=== PATIENT | male | born 1970 | race Caucasian/White ===

== ENCOUNTER → 2018-07-05 | Day surgery (SDC) | payer MEDICARE, BC, OTHER ==
[~2018-07-05] MED LIST: ATOR20TA58 PO; DILT180C29 PO; HYDR12.58 PO; INSU100I30 SQ; IV RINGERS,LACTATED 1000ML 1,000 ML IV SCH; LIDOCAINE 1% PF 2 ML VIAL. ONE; LIRA0.6P2 SQ; LOSA50TA7 PO; NITR50CA PO; OXYB5TAB7 PO; PROPOFOL 20 ML IV ONE; SAXA1TBM3 PO
[2018-07-05 08:07] VITALS: BP 117/65
--- NOTE | 2018-07-08 14:08 | PATHOLOGY ---
[facility] Accession Number: [id number] . 01 Material submitted: . DISTALL ESOPHAGUS . 01 Clinical history: . Pre-OP DX: Dysphagia Post-OP DX: Reflux, rule out Reyes's . 02 Diagnosis: Squamous and glandular mucosa, "distal esophageal biopsy": - Reflux esophagitis with reactive squamous and glandular mucosa. - There is no evidence of goblet cell metaplasia, dysplasia or malignancy. . (SHA:jose maria; 07/08/2018) MBR/07/08/2018 . 02 Electronically signed: . Aureliano Herman MD, Pathologist NPI- [id number] . 01 Gross description: . Received in formalin labeled "Matthew Rebolledo, distal esophagus," are 4 segments of adams soft tissue measuring 1.8 x 0.5 x 0.2 cm in aggregate dimensions and ranging from 0.3 to 0.6 cm in maximum dimension. The specimen is submitted entirely in cassette A1. (TSD; 07/05/2018) TOB/TOB . 02 Pathologist provided ICD-10: K21.0 . 02 CPT . 957667 Specimen Comment: A courtesy copy of this report has been sent to Specimen Comment: [phone], . Specimen Comment: Report sent to / DR HDEZ Specimen Comment: A duplicate report has been generated due to demographic updates. Performed at: [facility] [address] [facility] [address], [place] [id number] MD Edgardo Lux MD Phone: [phone] Performed at: 02 [facility] [address] [place], [place] [id number] MD David Marie MD Phone: [phone]
== END | disposition home or self-care (01) ==
LOC: SURG 06:59
PROVIDERS: ATTEND Internal Medicine Gastroenterology
DX: K21.0 Gastro-esophageal reflux disease with esophagitis (principal); K22.2 Esophageal obstruction; I10 Essential (primary) hypertension; E11.9 Type 2 diabetes mellitus without complications; E78.00 Pure hypercholesterolemia, unspecified; G47.30 Sleep apnea, unspecified; D64.9 Anemia, unspecified; Z83.3 Family history of diabetes mellitus; Z82.49 Family history of ischemic heart disease and other diseases of the circulatory system; Z83.71 Family history of colonic polyps; Z79.899 Other long term (current) drug therapy; Z98.890 Other specified postprocedural states; Z79.84 Long term (current) use of oral hypoglycemic drugs
CPT/HCPCS: 43239; 43450; 88305; J2704

== ENCOUNTER → 2019-01-13 | Outpatient (CLI) | payer MEDICARE, BC, OTHER ==
[2018-07-05 08:07] VITALS: BP 117/65
[~2019-01-13] MED LIST changes: -IV RINGERS,LACTATED 1000ML 1,000 ML IV SCH; -LIDOCAINE 1% PF 2 ML VIAL. ONE; +LOSA-73 PO; -LOSA50TA7 PO; -PROPOFOL 20 ML IV ONE
--- NOTE | 2019-01-14 09:47 | KCIC ---
Examination: 3 views of the right knee HISTORY: History of right knee pain for one month COMPARISON: None available FINDINGS: The alignment of the knee joint grossly appears unremarkable. Mild joint space loss identified in medial, lateral, patellofemoral compartments likely degeneration. There is no acute fracture or dislocation identified. Small knee joint effusion IMPRESSION: 1. Mild tricompartmental degenerative changes Electronically signed by: Frank Jara MD (01/13/2019 2:29 PM) [facility]
== END | disposition home or self-care (01) ==
LOC: KCIC 13:14
PROVIDERS: ATTEND Family Medicine
DX: M17.11 Unilateral primary osteoarthritis, right knee (principal); M25.461 Effusion, right knee
CPT/HCPCS: 73562

== ENCOUNTER → 2019-04-29 | Outpatient (CLI) | payer MEDICARE, BC ==
[2018-07-05 08:07] VITALS: BP 117/65
--- NOTE | 2019-04-29 16:13 | KCIC ---
SHOULDER 2+V RIGHT 04/29/2019 12:00 AM INDICATION: Right shoulder pain. COMPARISON: None available. TECHNIQUE: 3 views the right shoulder are provided. FINDINGS: There is no acute fracture or dislocation. Bone mineralization is within normal limits. Joint spaces are maintained. Regional soft tissues are within normal limits. There is no soft tissue gas or osseous erosion. IMPRESSION: No acute fracture or dislocation. Electronically signed by: Rachel Gill MD (04/29/2019 4:10 PM) [facility]
== END | disposition home or self-care (01) ==
LOC: KCIC 13:51
PROVIDERS: ATTEND Nurse Practitioner Family
DX: M25.511 Pain in right shoulder (principal)
CPT/HCPCS: 73030

== ENCOUNTER 2020-01-09 21:45 | Emergency (ER) | payer MEDICAID, BC, MEDICARE ==
[~2020-01-09] VITALS: Ht 170.2 cm; Wt 98.6 kg
[~2020-01-09 21:45] MED LIST changes: +OXYB5TAB10 PO; -OXYB5TAB7 PO
--- NOTE | 2020-01-09 22:12 | PHYS DOC ---
General Adult EDM: Chief Complaint: URINE CATHETER PROBLEM HPI: HPI: Patient is a 49 year old male who presents with report of urinary retention. Patient has Fgaan catheter in place and patient had last emptied his bag at about 5 PM. indicates that she has tried to flush the catheter on 3 occasions without success. Patient reports pain in the suprapubic region that is moderate. He denies any vomiting or diarrhea. [] Review of Systems: Review of Systems: Constitutional: Denies fever or chills. [] Respiratory: Denies cough or shortness of breath. [] Cardiovascular: Denies chest pain or edema. [] GI: Complains of suprapubic pain. [] : Complains of urinary retention. [] Musculoskeletal: Denies back pain or joint pain. [] Integument: Denies rash. [] Heart Score: Risk Factors: Risk Factors: DM, Current or recent (<one month) smoker, HTN, HLP, family history of CAD, obesity. Risk Scores: Score 0 - 3: 2.5% MACE over next 6 weeks - Discharge Home Score 4 - 6: 20.3% MACE over next 6 weeks - Admit for Clinical Observation Score 7 - 10: 72.7% MACE over next 6 weeks - Early Invasive Strategies Allergies: Allergies: Allergies Coded Allergies Type Severity Reaction Last Updated Verified No Known Drug Allergies 07/05/18 No Physical Exam: PE: Constitutional: Well developed, well nourished, no acute distress, non-toxic appearance. [] Eyes: PERRLA, EOMI, conjunctiva normal, no discharge. [] Neck: Normal range of motion, no tenderness, supple. [] Cardiovascular: Regular rate and rhythm [] Lungs & Thorax: Bilateral breath sounds clear to auscultation [] Abdomen: Bowel sounds normal, soft, with suprapubic tenderness. [] Skin: Warm, dry, no erythema, no rash. [] EKG: EKG: [] Radiology/Procedures: Radiology/Procedures: [] Course & Med Decision Making: Course & Med Decision Making Pertinent Labs and Imaging studies reviewed. (See chart for details) [] Dragon Disclaimer: Dragon Disclaimer: This electronic medical record was generated, in whole or in part, using a voice recognition dictation system. Departure Departure Impression: Primary Impression: Obstruction of urinary catheter Qualified Codes: T83.098A - Other mechanical complication of other urinary catheter, initial encounter Additional Impressions: Urinary catheter (Fagan) change required Urinary tract infection associated with catheterization of urinary tract Qualified Codes: T83.511A - Infection and inflammatory reaction due to indwelling urethral catheter, initial encounter; N39.0 - Urinary tract infection, site not specified Disposition: HOME, SELF-CARE Condition: STABLE Referrals: JOSE ENRIQUE HDEZ MD (PCP) Patient Instructions: Catheter-Associated Urinary Tract Infection FAQs - MCGHEE, Clean Intermittent Catheterization, Male, Fagan Catheter Care, Adult, Urinary Tract Infection Scripts Sulfamethoxazole/Trimethoprim (BACTRIM DS TABLET) 1 Each Tablet 1 TAB PO BID for 10 Days, #20 TAB 0 Refills Prov: ANGY MAYS Jr. DO 01/09/20 ANGY MAYS Jr. DO January 09, 2020 22:12
[2020-01-09 23:04] LABS: CLARITY,URINE CLOUDY
[2020-01-09 23:13] LABS: COLOR,URINE BROWN
[2020-01-09 23:16] LABS: BACTERIA,URINE FEW /HPF (0-FEW); RBC,URINE TNTC /HPF (0-2)
[2020-01-09] MEDS ORDERED: SULF1TAB24 PO (23:26)
[2020-01-09] MEDS ORDERED: SMZ/TMP 800/160MG TABLET. PO ONE (23:30)
[2020-01-09 23:37] VITALS: BP 144/75
== END 2020-01-09 23:49 | disposition home or self-care (01) ==
LOC: ER 21:45
DX: T83.511A Infection and inflammatory reaction due to indwelling urethral catheter, initial encounter (principal); N39.0 Urinary tract infection, site not specified; Y84.6 Urinary catheterization as the cause of abnormal reaction of the patient, or of later complication, without mention of misadventure at the time of the procedure
CPT/HCPCS: 51702; 81001; 87086; 99285-25

== ENCOUNTER 2021-04-20 13:49 | Emergency (ER) | payer MEDICARE, BC, MEDICAID ==
[~2021-04-20] VITALS: Ht 170.2 cm; Wt 102.0 kg
[~2021-04-20 13:49] MED LIST changes: +SULF1TAB24 PO
[2021-04-20] MEDS ORDERED: DEXAMETHASONE SOD PHOS 4 MG/ML VIAL IVP ONE (19:30)
--- NOTE | 2021-04-20 19:30 | RAD ---
XR CHEST 1V History: Reason: cough / Spl. Instructions: / History: Comparison: None. Findings: Low lung volumes. Mild multifocal ill-defined opacities. No pleural effusion. No pneumothorax. Normal heart size. Impression: 1. Mild multifocal ill-defined opacities, can be seen with viral pneumonia Electronically signed by: Berto Brizuela DO (04/20/2021 7:28 PM) [facility]
[2021-04-20 19:32] LABS: BASO % 0 % (0-3); EOS # 0.1 x10^3/uL (0.0-0.7); EOS % 2 % (0-3); HEMATOCRIT 37.4 % (39.0-53.0); HEMOGLOBIN 12.6 g/dL (13.0-17.5); LYMPH # 1.1 x10^3/uL (1.0-4.8); LYMPH % 17 % (24-48); MEAN CORPUSCULAR HEMOGLOBIN 27 pg (25-35); MEAN CORPUSCULAR HGB CONC 34 g/dL (31-37); MEAN CORPUSCULAR VOLUME 80 fL (79-100); MONO # 0.6 x10^3/uL (0.0-1.1); MONO % 10 % (0-9); NEUT # 4.5 x10^3/uL (1.8-7.7); NEUT % 71 % (31-73); PLATELET COUNT 310 x10^3/uL (140-400); RED BLOOD COUNT 4.67 x10^6/uL (4.30-5.70); RED CELL DISTRIBUTION WIDTH 16.6 % (11.5-14.5); WHITE BLOOD COUNT 6.4 x10^3/uL (4.0-11.0)
[2021-04-20] MEDS ORDERED: ALBUTEROL SULFATE 2.5 MG/3 ML NEBU. NEB ONE (19:45)
[2021-04-20 19:46] LABS: CALCIUM 8.6 mg/dL (8.5-10.1); CREATININE 1.1 mg/dL (0.7-1.3); GFR 71.4
--- NOTE | 2021-04-20 19:49 | PHYS DOC ---
Past Medical History Past Medical History: Anemia, Diabetes-Type II, High Cholesterol, Hypertension Additional Past Medical Histor: URETER IMPLANTS, MENTAL DELAY, SLEEP APNEA, NEUROGENIC BLADDER Past Surgical History: Tonsillectomy, Other Additional Past Surgical Histo: URETER IMPLANTS, LEFT EYE REMOVAL/PROSTHETIC Smoking Status: Never Smoker Alcohol Use: None General Adult EDM: Chief Complaint: COVID-19 positive, persistent dyspnea HPI: HPI: 50-year-old male has a history of diabetes and hypertension, tested positive for COVID-19 about 1 week ago and presents to the emergency department with persistent shortness of breath, cough, no loss of taste or smell, no hemoptysis, no chest pain, no leg pain or leg swelling, his mother says that he did get a [employer] vaccine back in October, unfortunately the patient has tested positive for COVID-19. No known history of cardiac disease or history of thromboembolism. No fevers or chills, she says that he also has a chronic indwelling Fagan catheter for over 20 for neurogenic bladder and believes it is time to get changed, the patient denies any abdominal pain or urinary symptoms Review of Systems: Review of Systems: General: no fevers , no chills,+general weakness Eyes: no blurred vision, no diplopia Skin: no rashes Neck: no swelling, no neck stiffness, no neck pain Heme: no bleeding, no lymph node enlargement Ear/Nose/Throat: No sore throat, no runny nose, no hearing loss, no difficulty swallowing Cardiovascular: no Chest pain, no palpitations Respiratory: +dyspnea, + cough, no hemoptysis Gastrointestinal: No abdominal pain, no nausea, no vomiting, no diarrhea, no b lood in stool Genitourinary: no dysuria, no hematuria Musculoskeletal: no back pain, no leg pain, no arm pain, no arthralgia Neurologic: no headaches, no dizziness, no focal numbness/tingling, no focal weakness Psych: no depression, no anxiety, no SI/HI *All review of systems are negative other than what is noted above Heart Score: C/O Chest Pain: No Risk Factors: Risk Factors: DM, Current or recent (<one month) smoker, HTN, HLP, family history of CAD, obesity. Risk Scores: Score 0 - 3: 2.5% MACE over next 6 weeks - Discharge Home Score 4 - 6: 20.3% MACE over next 6 weeks - Admit for Clinical Observation Score 7 - 10: 72.7% MACE over next 6 weeks - Early Invasive Strategies Current Medications: Current Medications Medications (Trade) Dose Ordered Sig/Gómez Start Time Stop Time Status Last Admin Dose Admin Albuterol Sulfate (Ventolin Neb Soln) 2.5 mg 1X ONCE 04/20/21 19:45 04/20/21 19:46 Dexamethasone Sodium Phosphate (Decadron) 10 mg 1X ONCE 04/20/21 19:30 04/20/21 19:31 DC Allergies: Allergies: Allergies Coded Allergies Type Severity Reaction Last Updated Verified No Known Drug Allergies 07/05/18 No Physical Exam: PE: Gen-well appearing, no acute distress Head: Normocephalic/Atraumatic ENT: atraumatic, PERRLA, EOMI, oropharynx clear Neck: supple, full ROM/strength, no JVD, no nuchal rigidity Lungs: no distress, speaks in full sentences, Clear to auscultation bilaterally CV: reg rate, rhythm, no murmus/rubs/gallops, peripheral pulses equal in all extremities Abdomen: soft/nontender, no guarding/rebound tenderness, no rigidity, non distended, normoactive bowel sounds Musculoskeletal: full ROM/strength in all extremities, atraumatic, no swelling genitourinary: There is an indwelling Fagan in place Back: full range of motion/strength Skin: intact, no rashes Lymph: no gross DIEUDONNE Neuro: alert and oriented x 4, CN 2-12 grossly intact, Motor strength is 5/5 in all extremities, no focal sensory deficits, no focal ataxia, ambulatory with steady gait Psych: normal mood/affect Current Patient Data: Labs: Laboratory Tests Test 04/20/21 19:19 White Blood Count 6.4 x10^3/uL (4.0-11.0) Red Blood Count 4.67 x10^6/uL (4.30-5.70) Hemoglobin 12.6 g/dL (13.0-17.5) L Hematocrit 37.4 % (39.0-53.0) L Mean Corpuscular Volume 80 fL (79-100) Mean Corpuscular Hemoglobin 27 pg (25-35) Mean Corpuscular Hemoglobin Concent 34 g/dL (31-37) Red Cell Distribution Width 16.6 % (11.5-14.5) H Platelet Count 310 x10^3/uL (140-400) Neutrophils (%) (Auto) 71 % (31-73) Lymphocytes (%) (Auto) 17 % (24-48) L Monocytes (%) (Auto) 10 % (0-9) H Eosinophils (%) (Auto) 2 % (0-3) Basophils (%) (Auto) 0 % (0-3) Neutrophils # (Auto) 4.5 x10^3/uL (1.8-7.7) Lymphocytes # (Auto) 1.1 x10^3/uL (1.0-4.8) Monocytes # (Auto) 0.6 x10^3/uL (0.0-1.1) Eosinophils # (Auto) 0.1 x10^3/uL (0.0-0.7) Basophils # (Auto) 0.0 x10^3/uL (0.0-0.2) Laboratory Tests 04/20/21 19:19 EKG: EKG: [] Twelve-lead EKG was performed at 8:35 PM: Normal sinus rhythm, rate of 75, the computer reads "nonspecific T wave abnormality",, there are flattened T waves in lead III and also slightly poor R wave progression although there is unfortunate no old EKG for comparison Radiology/Procedures: Radiology/Procedures: [] Course & Med Decision Making: Course & Med Decision Making Pertinent Labs and Imaging studies reviewed. (See chart for details) [] 50-year-old male presents to the emergency department with shortness of breath, general weakness and fever which I believe is clinically consistent with his known diagnosis of COVID-19 pneumonia, I do not see any obvious additional pathology like a bacterial pneumonia, a PE, unlikely ACS, dissection, pneu mothorax are all unlikely etiologies however given his risk factors I will check an EKG, chest x-ray, will check labs, cardiac biomarkers, give a dose of steroids and a breathing treatment, then reevaluate and reexamine the patient during work-up to determine best course of action as more data becomes available. His room air O2 sat is 93% which is reassuring Updated 8:39 PM: Patient is feeling better, O2 sat is within normal limits on room air, work-up otherwise negative and I believe he stable for discharge at this time Patient was seen in the ED for shortness of breath in the setting of known COVID-19 infection, clinically improved in the emergency department, there is no apparent evidence of any emergency medical pathology at this time, patient was advised follow-up with their primary care provider /physician in the next 24-48 hours and to return to the ED before then if any new or worsening / concerning symptoms had developed. All questions and concerns were addressed at time of disposition Dragon Disclaimer: Dragon Disclaimer: This electronic medical record was generated, in whole or in part, using a voice recognition dictation system. Departure Departure Impression: Primary Impression: Pneumonia due to COVID-19 virus Disposition: HOME / SELF CARE / HOMELESS Condition: IMPROVED Referrals: JOSE ENRIQUE HDEZ MD (PCP) Within 48 hours Additional Instructions: The good news is his test here were okay, the symptoms should get better in the next few days and I am putting him on some breathing medicine and steroids, I like him to follow-up with his primary care provider/doctor in the next 48 hours, he can come back to the emergency room anytime before then if any new or worsening/concerning symptoms develop Scripts Albuterol Sulfate (VENTOLIN HFA INHALER) 18 Gm Hfa.aer.ad 2 PUFF INH QID for FOR ASTHMA, #1 INHALER 0 Refills Prov: SILVER NEAL MD 04/20/21 Methylprednisolone (MEDROL) 4 Mg Tab.ds.pk 1 PKG PO UD for inflammation, #1 PKG Prov: SILVER NEAL MD 04/20/21 SILVER NEAL MD Apr 20, 2021 19:49
[2021-04-20 19:53] LABS: ALBUMIN 3.1 g/dL (3.4-5.0); ALBUMIN/GLOBULIN RATIO 0.9 (1.0-1.7); TOTAL BILIRUBIN 0.4 mg/dL (0.2-1.0); TOTAL PROTEIN 6.7 g/dL (6.4-8.2)
[2021-04-20] MEDS ORDERED: VENTOLIN HFA18 GM INH (20:41)
[2021-04-20] MEDS ORDERED: METH4TAB2 PO (20:41)
[2021-04-20 22:00] VITALS: BP 116/79
--- NOTE | 2021-04-21 05:07 | EKG ---
[facility] [address] [place] [address] Test Date: 2021-04-20 Test Time: 20:35:12 Pat Name: ANGI TOPETE Department: Room: Gender: M Supplier Quality Engineer: : 1970 Requested By: SILVER NEAL Order Number: [id number] Reading MD: Measurements Intervals [place]ier Rate: 75 P: 26 IA: 164 QRS: -31 QRSD: 92 T: 18 QT: 378 QTc: 425 Interpretive Statements SINUS RHYTHM ABNORMAL LEFT AXIS DEVIATION R-S TRANSITION ZONE IN V LEADS DISPLACED TO THE RIGHT NON SPECIFIC T ABNORMALITY ABNORMAL ECG RI6.02 No previous ECG available for comparison
== END 2021-04-20 22:00 | disposition home or self-care (01) ==
LOC: ER 13:49
DX: U07.1 COVID-19 (principal); J12.82 Pneumonia due to coronavirus disease 2019; E11.9 Type 2 diabetes mellitus without complications; E78.00 Pure hypercholesterolemia, unspecified; I10 Essential (primary) hypertension
CPT/HCPCS: 36415; 71045; 80053; 83880; 84484; 85025; 93005; 94640; 96374; 99285; J1100; J7613